=== PATIENT | male | born 1995 | race Caucasian/White ===

== ENCOUNTER 2017-10-21 11:52 | Emergency (ER) | payer OTHER ==
[2017-10-21 12:29] LABS: Bilirubin Negative (Negative); Blood, Urine Trace (Negative); Clarity Clear (Clear); Glucose, Urine (Dipstick) Negative (Negative); Leukocyte Negative (Negative); Nitrite Negative (Negative); Protein, Urine (Dipstick) Negative (Neg-Trace); Urobilinogen 0.2 mg/dL (0.2-1.0)
[2017-10-21 12:32] LABS: Specific Gravity, Urine Less/Equal 1.005 (1.005-1.030)
[2017-10-21 12:35] LABS: Bacteria/HPF Rare-Few HPF (None Seen); RBC/HPF 0-3 HPF (0-3); Squamous Epithelial 0-3 HPF (0-3); WBC/HPF 0-3 HPF (0-3)
[2017-10-21] MEDS ORDERED: Ibuprofen 200 MG TAB ONE (12:53)
== END 2017-10-21 13:02 | disposition home or self-care (01) ==
LOC: BURERS 11:52
DX: M54.5 Low back pain (principal); F17.210 Nicotine dependence, cigarettes, uncomplicated
CPT/HCPCS: 36416; 81003; 81015; 99283

== ENCOUNTER 2018-03-08 13:51 | Emergency (ER) | payer OTHER ==
[2018-03-08] MEDS ORDERED: Lidocaine 1% w/Epinephrine 1:100K 30 ML VIAL ONE (14:03)
[2018-03-08] MEDS ORDERED: Adacel (T-DAP) 0.5 ML VIAL ONE (14:07)
== END 2018-03-08 14:48 | disposition home or self-care (01) ==
LOC: BURERS 13:51
DX: S51.811A Laceration without foreign body of right forearm, initial encounter (principal); F17.210 Nicotine dependence, cigarettes, uncomplicated; W25.XXXA Contact with sharp glass, initial encounter
CPT/HCPCS: 12002; 90471; 90715; J2001

== ENCOUNTER 2018-03-16 08:54 | Emergency (ER) | payer OTHER | END 2018-03-16 09:03 | disposition home or self-care (01) | LOC: BURERS 08:54 | DX: S51.811D Laceration without foreign body of right forearm, subsequent encounter (principal); F17.210 Nicotine dependence, cigarettes, uncomplicated ==